=== PATIENT | male | born 1950 | race Hispanic/Latino ===

== ENCOUNTER 2018-11-27 13:16 | Emergency (ER) | payer MEDICARE, OTHER ==
[~2018-11-27] VITALS: Ht 160 cm; Wt 122.5 kg
[~2018-11-27 13:16] MED LIST: Z.0.DIOVAN160 MG PO; Z.0.GLIMEPIRIDE2 MG PO; Z.0.NEXIUM40 MG PO; Z.0.PLAVIX75 MG PO; Z.0.PRAVASTATIN SOD4 PO; Z.2.METFORMIN HCL500 PO
--- NOTE | 2018-11-27 13:41 | NUR ---
patient to CT at this time
--- NOTE | 2018-11-27 14:04 | Diagnostic Imaging Report ---
CT BRAIN WO HISTORY: Slurred speech COMPARISON: Head CT 05/13/2012 Technique: Noncontrast axial scans were obtained from skull base to the vertex. Coronal and sagittal reconstructions obtained from the axial data. One or more of the following dose reduction techniques were used: Automated exposure control, adjustment of the mA and/or kV according to patient size, and/or utilization of iterative reconstruction technique. DISCUSSION: Scalp/Skull: Unremarkable. Brain sulci: Mildly prominent, including the cerebellar sulci. Ventricles: Compensatory dilatation. Extra-axial spaces: No masses or fluid collections. Carotid siphon calcifications are present. Parenchyma: Mild bilateral deep white matter hypodensity is likely chronic microvascular ischemic change. Otherwise, no masses, hemorrhage, or large vascular territory acute infarct. Dural sinuses: No abnormal densities. Sellar/Suprasellar region: Intact. Skull base: Intact. Incidental findings: None. IMPRESSION: 1. No acute intracranial abnormalities. 2. Mild supratentorial chronic microvascular ischemic change. Generalized cerebral and cerebellar volume loss. Signed by: Dr. Kwan Delgadillo M.D. on 11/27/2018 2:01 PM
[2018-11-27 14:14] LABS: BASOPHILS # (AUTO) 0.1 (0.0-0.1); BASOPHILS % 0.8 % (0.0-1.0); EOSINOPHILS # (AUTO) 0.5 (0.0-0.4); EOSINOPHILS % 5.5 % (0.0-6.0); HEMATOCRIT 43.8 % (38.2-49.6); HEMOGLOBIN 14.8 g/dL (14.0-18.0); LYMPHOCYTES # (AUTO) 1.7 (1.0-3.2); LYMPHOCYTES % 18.4 % (18.0-39.1); MEAN CORPUSCULAR HEMOGLOBIN 29.9 pg (28-32); MEAN CORPUSCULAR HGB CONC 33.8 g/dL (31-35); MEAN CORPUSCULAR VOLUME 88.5 fL (81-99); MONOCYTES # (AUTO) 0.8 (0.2-0.8); MONOCYTES % 8.5 % (4.4-11.3); NEUTROPHILS # (AUTO) 6.2 (2.1-6.9); NEUTROPHILS % 66.3 % (38.7-80.0); PLATELET COUNT 214 x10e3/uL (140-360); RED BLOOD COUNT 4.95 x10e6/uL (4.3-5.7); RED CELL DISTRIBUTION WIDTH 13.2 % (11.7-14.4)
--- NOTE | 2018-11-27 14:16 | Diagnostic Imaging Report ---
Chest, 1 view, 11/27/2018. History: Weakness, slurred speech. Comparison: None available. Findings: The cardiomediastinal silhouette and pulmonary vasculature are within normal limits for a portable exam. There is no focal consolidation or pleural effusion. There are no acute osseous or soft tissue abnormalities. Impression: No acute cardiopulmonary abnormality. Signed by: Estrada Rico on 11/27/2018 2:13 PM
[2018-11-27 14:30] LABS: INR 0.89; PROTHROMBIN TIME 12.5 seconds (11.9-14.5)
[2018-11-27 14:31] LABS: PARTIAL THROMBOPLASTIN TIME 29.3 seconds (23.8-35.5)
[2018-11-27 14:32] LABS: ALANINE AMINOTRANSFERASE 36 IU/L (0-55); ALBUMIN 3.6 g/dL (3.5-5.0); ALKALINE PHOSPHATASE 64 IU/L (40-150); ANION GAP 12.2 mmol/L (8-16); BLOOD UREA NITROGEN 16 mg/dL (7-26); BUN/CREATININE RATIO 16 (6-25); CALCIUM 10.4 mg/dL (8.4-10.2); CARBON DIOXIDE 25 mmol/L (22-29); CHLORIDE 104 mmol/L (98-107); CREATINE KINASE 42 IU/L (30-200); CREATININE, SERUM 1.03 mg/dL (0.72-1.25); EST GLOMERULAR FILTRATION RATE > 60 ML/MIN (60-); GLUCOSE 141 mg/dL (74-118); LIPASE 19 U/L (8-78); POTASSIUM 4.2 mmol/L (3.5-5.1); SODIUM 137 mmol/L (136-145)
--- NOTE | 2018-11-27 15:42 | NUR ---
Patient has not been able to provide urine sample despite multiple attempts. Patient also refused straight catheterizatioin.
[2018-11-27] MEDS ORDERED: ASPIRIN 81 MG CHEW TAB PO STA (16:06)
--- NOTE | 2018-11-27 16:25 | NUR ---
bladder scan performed at this time; 110 cc volume
[2018-11-27 16:37] VITALS: BP 92/63
== END 2018-11-27 16:39 | disposition home or self-care (01) ==
LOC: ER 13:16
DX: R42 Dizziness and giddiness (principal); R53.1 Weakness; R47.9 Unspecified speech disturbances; Z74.09 Other reduced mobility; E78.00 Pure hypercholesterolemia, unspecified; E11.9 Type 2 diabetes mellitus without complications; I10 Essential (primary) hypertension; Z95.5 Presence of coronary angioplasty implant and graft; Z79.84 Long term (current) use of oral hypoglycemic drugs; Z79.02 Long term (current) use of antithrombotics/antiplatelets
CPT/HCPCS: 36415; 70450; 71045; 80053; 82550; 82553; 83690; 83880; 84484; 85025; 85610; 85730; 93005; 99284

== ENCOUNTER → 2020-04-20 | Outpatient (CLI) | payer MEDICARE, OTHER | LOC: RAD 13:46 | PROVIDERS: ATTEND Internal Medicine | DX: M79.672 Pain in left foot (principal) ==

== ENCOUNTER → 2020-08-26 | Outpatient (CLI) | payer MEDICARE, OTHER | LOC: MRI 12:39 | PROVIDERS: ATTEND Pediatrics | DX: R47.1 Dysarthria and anarthria (principal); R25.3 Fasciculation; R53.1 Weakness | CPT/HCPCS: 70551; 72141 ==

== ENCOUNTER 2022-07-09 12:48 | Inpatient (IN) | payer MEDICARE, OTHER ==
[2022-07-09] VITALS (11 sets, daily range): BP systolic 101–115; BP diastolic 62–85; PULSE 69–79; RESP 17–34; TEMP 97.5–98; O2SAT 97–100
[~2022-07-09] VITALS: Ht 160 cm; Wt 122.5 kg
[2022-07-09 13:39] LABS: BASOPHILS # (AUTO) 0.1 (0.0-0.1); BASOPHILS % 0.7 % (0.0-1.0); EOSINOPHILS % 0.1 % (0.0-6.0); HEMATOCRIT 34.6 % (38.2-49.6); HEMOGLOBIN 10.3 g/dL (14.0-18.0); LYMPHOCYTES # (AUTO) 1.2 (1.0-3.2); LYMPHOCYTES % 13.4 % (18.0-39.1); MEAN CORPUSCULAR HEMOGLOBIN 27.6 pg (28-32); MEAN CORPUSCULAR HGB CONC 29.8 g/dL (31-35); MEAN CORPUSCULAR VOLUME 92.8 fL (81-99); MONOCYTES # (AUTO) 0.7 (0.2-0.8); MONOCYTES % 8.1 % (4.4-11.3); NEUTROPHILS # (AUTO) 6.7 (2.1-6.9); PLATELET COUNT 278 x10e3/uL (140-360); RED BLOOD COUNT 3.73 x10e6/uL (4.3-5.7); RED CELL DISTRIBUTION WIDTH 14.3 % (11.7-14.4)
[2022-07-09 13:54] LABS: INR 1.01; PROTHROMBIN TIME 13.8 seconds (11.9-14.5)
[2022-07-09 13:55] LABS: PARTIAL THROMBOPLASTIN TIME 33.1 seconds (23.8-35.5)
[2022-07-09 14:02] LABS: ALANINE AMINOTRANSFERASE 16 IU/L (0-55); ALBUMIN 3.4 g/dL (3.5-5.0); ALBUMIN/GLOBULIN RATIO 0.7 (0.8-2.0); ALKALINE PHOSPHATASE 95 IU/L (40-150); ANION GAP 14.9 mmol/L (8-16); BLOOD UREA NITROGEN 52 mg/dL (7-26); BUN/CREATININE RATIO 30 (6-25); CALCIUM 9.1 mg/dL (8.4-10.2); CARBON DIOXIDE 24 mmol/L (22-29); CHLORIDE 106 mmol/L (98-107); CREATININE, SERUM 1.72 mg/dL (0.72-1.25); GLUCOSE 196 mg/dL (74-118); MAGNESIUM 2.2 MG/DL (1.3-2.1); SODIUM 139 mmol/L (136-145)
[2022-07-09 14:04] LABS: POTASSIUM 5.9 mmol/L (3.5-5.1)
[2022-07-09 14:07] LABS: B-TYPE NATRIURETIC PEPTIDE2 390.2 pg/mL (0-100)
[2022-07-09] MEDS ORDERED: ASPIRIN 81 MG CHEW TAB PO ONE (14:15)
[2022-07-09] MEDS ORDERED: SODIUM CHLORIDE 0.9% 500ML 500 ML IV ONE (14:15)
[2022-07-09] MEDS ORDERED: IOPAMIDOL 370 MG/ML 100 ML INFUS..BTL INJ ONE (15:01)
[2022-07-09 15:31] LABS: CLARITY,URINE TURBID (CLEAR); LEUKOCYTE ESTERASE ,URINE LARGE (NEGATIVE); NITRITE,URINE POSITIVE (NEGATIVE); PROTEIN,URINE DIPSTICK 1+ (NEGATIVE)
[2022-07-09 15:32] LABS: COLOR,URINE STRAW (YELLOW); KETONES,URINE NEGATIVE (NEGATIVE); URINE UROBILINOGEN 0.2 mg/dL (0.2 - 1)
[2022-07-09] MEDS ORDERED: DEXTROSE 50% SYRINGE 50 ML IV STA (15:43)
[2022-07-09] MEDS ORDERED: INSULIN REGULAR, HUMAN 100 UNIT/1 ML IV ONE (15:45)
[2022-07-09 15:49] LABS: BACTERIA,URINE MODERATE /HPF; WBC,URINE (MAN) 21-50 /HPF (0-5)
[2022-07-09] MEDS ORDERED: SODIUM BICARBONATE 8.4% INJ 50 ML SYR IV ONE (16:00)
[2022-07-09] MEDS ORDERED: SOD POLYSTYRENE SULFONATE SUSP 15 GM/60 ML BTL PO ONE (16:00)
[2022-07-09] MEDS ORDERED: ACETAMINOPHEN 325 MG TAB PO PRN (16:00)
[2022-07-09] MEDS ORDERED: ONDANSETRON HCL INJ 2MG/ML 2ML 2 MG/ML VIAL IV PRN (16:00)
[2022-07-09] MEDS ORDERED: CALCIUM GLUC 1 G/50 ML NACL 50 ML IV ONE (16:00)
[2022-07-09] MEDS ORDERED: ZOLPIDEM TARTRATE 5 MG TAB PO PRN (16:15)
[2022-07-09] MEDS ORDERED: DEXTROSE 50% SYRINGE 50 ML IV PRN (16:15)
[2022-07-09] MEDS ORDERED: FUROSEMIDE INJ 10 MG/ML 4 ML VIAL IV ONE (16:30)
[2022-07-09] MEDS: INSULIN REGULAR, HUMAN 100 UNIT/1 ML SQ SCH ×2 (16:30→20:57)
[2022-07-09] MEDS: FAMOTIDINE 20 MG/2 ML VIAL IV SCH (17:32)
[2022-07-09] MEDS ORDERED: JANUMET 50-1,01 EACH (18:21)
[2022-07-09] MEDS ORDERED: HYDROCHLOROTHIA25 MG PO (18:21)
[2022-07-09] MEDS ORDERED: LISINOPRIL20 MG PO (18:21)
[2022-07-09] MEDS ORDERED: SIMVASTATIN40 MG PO (18:21)
[2022-07-09] MEDS ORDERED: vitamin D2 PO (18:21)
[2022-07-09] MEDS ORDERED: GLIMEPIRIDE4 MG PO (18:24)
[2022-07-10] VITALS (38 sets, daily range): BP systolic 77–181; BP diastolic 58–128; PULSE 70–93; RESP 17–43; TEMP 97.8–98.7; O2SAT 91–100
[2022-07-10] MEDS: FAMOTIDINE 20 MG/2 ML VIAL IV SCH ×2 (06:00→17:04)
[2022-07-10 07:00] LABS: BASOPHILS # (AUTO) 0.1 (0.0-0.1); BASOPHILS % 0.8 % (0.0-1.0); EOSINOPHILS # (AUTO) 0.2 (0.0-0.4); EOSINOPHILS % 1.8 % (0.0-6.0); HEMATOCRIT 35.2 % (38.2-49.6); HEMOGLOBIN 10.2 g/dL (14.0-18.0); LYMPHOCYTES # (AUTO) 1.3 (1.0-3.2); LYMPHOCYTES % 14.4 % (18.0-39.1); MEAN CORPUSCULAR HEMOGLOBIN 27.3 pg (28-32); MEAN CORPUSCULAR VOLUME 94.1 fL (81-99); MONOCYTES # (AUTO) 0.7 (0.2-0.8); MONOCYTES % 8.3 % (4.4-11.3); NEUTROPHILS # (AUTO) 6.5 (2.1-6.9); NEUTROPHILS % 74.2 % (38.7-80.0); PLATELET COUNT 235 x10e3/uL (140-360); RED BLOOD COUNT 3.74 x10e6/uL (4.3-5.7); RED CELL DISTRIBUTION WIDTH 14.3 % (11.7-14.4)
[2022-07-10 07:22] LABS: ALBUMIN 3.2 g/dL (3.5-5.0); ALBUMIN/GLOBULIN RATIO 0.7 (0.8-2.0); ANION GAP 14.5 mmol/L (8-16); CREATININE, SERUM 1.04 mg/dL (0.72-1.25); POTASSIUM 4.5 mmol/L (3.5-5.1)
[2022-07-10] MEDS: INSULIN REGULAR, HUMAN 100 UNIT/1 ML SQ SCH ×4 (07:30→21:00)
[2022-07-10] MEDS: CLOPIDOGREL BISULFATE 75 MG TAB PO SCH (08:39)
[2022-07-10] MEDS: ASPIRIN 81 MG ENTERIC COATED PO SCH (08:39)
[2022-07-10] MEDS: SODIUM CHLORIDE 0.45% 1,000 ML IV SCH (12:30)
[2022-07-11] VITALS (12 sets, daily range): BP systolic 113–141; BP diastolic 53–77; PULSE 73–104; RESP 20–36; TEMP 97.3–99.2; O2SAT 92–98
[2022-07-11] MEDS: SODIUM CHLORIDE 0.45% 1,000 ML IV SCH (02:21)
[2022-07-11] MEDS: FAMOTIDINE 20 MG/2 ML VIAL IV SCH ×2 (05:27→16:40)
[2022-07-11 05:37] LABS: BASOPHILS # (AUTO) 0.1 (0.0-0.1); BASOPHILS % 0.9 % (0.0-1.0); EOSINOPHILS # (AUTO) 0.1 (0.0-0.4); EOSINOPHILS % 0.5 % (0.0-6.0); HEMATOCRIT 34.9 % (38.2-49.6); HEMOGLOBIN 9.7 g/dL (14.0-18.0); LYMPHOCYTES # (AUTO) 1.1 (1.0-3.2); LYMPHOCYTES % 12.1 % (18.0-39.1); MEAN CORPUSCULAR HEMOGLOBIN 26.6 pg (28-32); MEAN CORPUSCULAR HGB CONC 27.8 g/dL (31-35); MEAN CORPUSCULAR VOLUME 95.6 fL (81-99); MONOCYTES # (AUTO) 0.6 (0.2-0.8); MONOCYTES % 6.5 % (4.4-11.3); NEUTROPHILS # (AUTO) 7.4 (2.1-6.9); NEUTROPHILS % 79.4 % (38.7-80.0); PLATELET COUNT 247 x10e3/uL (140-360); RED BLOOD COUNT 3.65 x10e6/uL (4.3-5.7); RED CELL DISTRIBUTION WIDTH 13.8 % (11.7-14.4)
[2022-07-11 06:23] LABS: ALBUMIN 3.1 g/dL (3.5-5.0); ALBUMIN/GLOBULIN RATIO 0.7 (0.8-2.0); ANION GAP 15.6 mmol/L (8-16); CREATININE, SERUM 1.04 mg/dL (0.72-1.25); POTASSIUM 4.6 mmol/L (3.5-5.1)
[2022-07-11] MEDS: INSULIN REGULAR, HUMAN 100 UNIT/1 ML SQ SCH ×4 (09:47→21:09)
[2022-07-11] MEDS: ASPIRIN 81 MG ENTERIC COATED PO SCH (09:47)
[2022-07-11] MEDS: CLOPIDOGREL BISULFATE 75 MG TAB PO SCH (09:47)
[2022-07-11] MEDS ORDERED: ONDANSETRON HCL 4 MG ORAL DISINTEGRATING TAB PO PRN (13:00)
[2022-07-11 15:32] LABS: HEMOGLOBIN 9.3 g/dL (14.0-18.0); MEAN CORPUSCULAR HGB CONC 29.1 g/dL (31-35); PLATELET COUNT 209 x10e3/uL (140-360); RED BLOOD COUNT 3.44 x10e6/uL (4.3-5.7)
[2022-07-11 15:47] LABS: ANION GAP 12.6 mmol/L (8-16); CALCIUM 8.6 mg/dL (8.4-10.2); CREATININE, SERUM 1.15 mg/dL (0.72-1.25); POTASSIUM 4.6 mmol/L (3.5-5.1)
[2022-07-12] VITALS (12 sets, daily range): BP systolic 112–139; BP diastolic 49–78; PULSE 71–102; RESP 15–30; TEMP 97.5–99.4; O2SAT 93–100
[2022-07-12] MEDS: FAMOTIDINE 20 MG/2 ML VIAL IV SCH ×2 (05:12→18:03)
[2022-07-12 05:47] LABS: HEMOGLOBIN 9.5 g/dL (14.0-18.0); MEAN CORPUSCULAR HEMOGLOBIN 27.5 pg (28-32); MEAN CORPUSCULAR HGB CONC 29.7 g/dL (31-35); MEAN CORPUSCULAR VOLUME 92.5 fL (81-99); PLATELET COUNT 189 x10e3/uL (140-360); RED BLOOD COUNT 3.46 x10e6/uL (4.3-5.7); RED CELL DISTRIBUTION WIDTH 13.7 % (11.7-14.4)
[2022-07-12 06:14] LABS: ANION GAP 11.4 mmol/L (8-16); CALCIUM 8.6 mg/dL (8.4-10.2); CREATININE, SERUM 1.08 mg/dL (0.72-1.25); POTASSIUM 4.4 mmol/L (3.5-5.1)
[2022-07-12] MEDS: ASPIRIN 81 MG ENTERIC COATED PO SCH (09:50)
[2022-07-12] MEDS: CLOPIDOGREL BISULFATE 75 MG TAB PO SCH (09:51)
[2022-07-12] MEDS: INSULIN REGULAR, HUMAN 100 UNIT/1 ML SQ SCH ×4 (09:52→21:51)
[2022-07-12 11:02] LABS: EOSINOPHILS % (MANUAL) 3 % (0-7); LYMPHOCYTES % (MANUAL) 12 % (19-48); MONOCYTES % (MANUAL) 6 % (3.4-9.0); NEUTROPHILS % (MANUAL) 77 % (40-74); PLATELET ESTIMATE ADEQUATE; PLATELET MORPHOLOGY COMMENT NORMAL; RBC MORPHOLOGY COMMENT NORMAL
[2022-07-12 15:28] LABS: CHOL/HDL RATIO 2.9 (3.9-4.7)
[2022-07-12] MEDS ORDERED: ENOXAPARIN SOD INJ 40 MG/0.4 ML SYR SC SCH (17:00)
[2022-07-13] VITALS (7 sets, daily range): BP systolic 121–146; BP diastolic 52–69; PULSE 79–100; RESP 18–25; TEMP 98.6–99.5; O2SAT 94–99
[2022-07-13 05:43] LABS: HEMATOCRIT 31.6 % (38.2-49.6); HEMOGLOBIN 9.2 g/dL (14.0-18.0); MEAN CORPUSCULAR HEMOGLOBIN 27.2 pg (28-32); MEAN CORPUSCULAR HGB CONC 29.1 g/dL (31-35); MEAN CORPUSCULAR VOLUME 93.5 fL (81-99); PLATELET COUNT 211 x10e3/uL (140-360); RED BLOOD COUNT 3.38 x10e6/uL (4.3-5.7); RED CELL DISTRIBUTION WIDTH 13.5 % (11.7-14.4)
[2022-07-13] MEDS: FAMOTIDINE 20 MG/2 ML VIAL IV SCH (05:45)
[2022-07-13 06:10] LABS: ANION GAP 11.7 mmol/L (8-16); CREATININE, SERUM 0.85 mg/dL (0.72-1.25); POTASSIUM 4.7 mmol/L (3.5-5.1)
[2022-07-13 07:32] LABS: LYMPHOCYTES % (MANUAL) 16 % (19-48); MONOCYTES % (MANUAL) 6 % (3.4-9.0); NEUTROPHILS % (MANUAL) 77 % (40-74)
[2022-07-13 07:33] LABS: PLATELET ESTIMATE ADEQUATE; PLATELET MORPHOLOGY COMMENT NORMAL; RBC MORPHOLOGY COMMENT NORMAL
[2022-07-13] MEDS: CLOPIDOGREL BISULFATE 75 MG TAB PO SCH (08:57)
[2022-07-13] MEDS: ASPIRIN 81 MG ENTERIC COATED PO SCH (08:57)
[2022-07-13] MEDS: INSULIN REGULAR, HUMAN 100 UNIT/1 ML SQ SCH (09:01)
[2022-07-13] MEDS ORDERED: FAMOTIDINE 20 MG TAB PO SCH (18:00)
== END 2022-07-13 13:22 | disposition hospice, home (50) | DRG 56 ==
LOC: ER 13:05 → ERHOLD 15:49 → ICU 17:49 → MED/SURG3 07-10 19:46
PROVIDERS: ADMIT Internal Medicine; ATTEND Internal Medicine
DX: G31.89 Other specified degenerative diseases of nervous system (principal); J96.01 Acute respiratory failure with hypoxia; N17.9 Acute kidney failure, unspecified; N39.0 Urinary tract infection, site not specified; I24.8 Other forms of acute ischemic heart disease; I82.621 Acute embolism and thrombosis of deep veins of right upper extremity; M62.59 Muscle wasting and atrophy, not elsewhere classified, multiple sites; G70.89 Other specified myoneural disorders; R26.0 Ataxic gait; R47.89 Other speech disturbances; R47.1 Dysarthria and anarthria; I25.10 Atherosclerotic heart disease of native coronary artery without angina pectoris; G47.33 Obstructive sleep apnea (adult) (pediatric); G20 Parkinson's disease; E87.5 Hyperkalemia; R13.12 Dysphagia, oropharyngeal phase; I12.9 Hypertensive chronic kidney disease with stage 1 through stage 4 chronic kidney disease, or unspecified chronic kidney disease; E11.22 Type 2 diabetes mellitus with diabetic chronic kidney disease; N18.9 Chronic kidney disease, unspecified; E11.40 Type 2 diabetes mellitus with diabetic neuropathy, unspecified; R53.1 Weakness; E66.9 Obesity, unspecified; B96.4 Proteus (mirabilis) (morganii) as the cause of diseases classified elsewhere; Z95.5 Presence of coronary angioplasty implant and graft; Z79.84 Long term (current) use of oral hypoglycemic drugs; Z79.02 Long term (current) use of antithrombotics/antiplatelets; Z99.2 Dependence on renal dialysis
CPT/HCPCS: 0223U; 36415; 51700; 70450; 70496; 70498; 70551; 71045; 74230; 80048; 80053; 80061; 81001; 82140; 82550; 82553; 82948; 83735; 83880; 84132; 84484; 85007; 85025; 85027; 85610; 85730; 87086; 87186; 93005; 93306; 93971; 94660; 94799; 96361; 99284; J0696; J1650; J1940; J7040; J7799; Q9967